=== PATIENT | male | born 1960 | race Caucasian/White ===

== ENCOUNTER 2017-01-17 18:37 | Emergency (ER) | payer OTHER ==
[2017-01-17 21:09] LABS: HEMOGLOBIN 17.9 gm/dl (14.0-17.5); RED BLOOD COUNT 5.83 M/UL (4.20-5.50); WHITE BLOOD COUNT 7.5 K/UL (4.5-11.0)
[2017-01-17 21:26] LABS: BUN/CREATININE RATIO 16 (0-10)
== END 2017-01-17 22:05 | disposition home or self-care (01) ==
LOC: ER1 18:37
PROVIDERS: Emergency Medicine
DX: R10.9 Unspecified abdominal pain (principal); R11.0 Nausea; K57.30 Diverticulosis of large intestine without perforation or abscess without bleeding; Z90.49 Acquired absence of other specified parts of digestive tract; Z87.442 Personal history of urinary calculi
CPT/HCPCS: 36415; 80053; 81001; 82550; 82553; 83605; 83690; 83874; 84484; 85025; 87086; 96374; 99284; J1885

== ENCOUNTER → 2017-04-28 | Outpatient (CLI) | payer OTHER | LOC: KOH-I 07:45 | DX: R07.81 Pleurodynia (principal) | CPT/HCPCS: 71101; 76700 ==